=== PATIENT | female | born 1965 | race Two or more races ===

== ENCOUNTER 2019-03-09 11:24 | Emergency (ER) | payer OTHER ==
[2019-03-09 12:05] VITALS: BP 146/82; PULSE 91; TEMP 98; BMI 29.2
[2019-03-09] MEDS ORDERED: IBUPROFEN 400 MG TABLET (FP) PO ONE ×2 (12:42→12:44)
--- NOTE | 2019-03-09 13:04 | PDOC ---
History of Present Illness - General Chief Complaint: Ear Problem Stated Complaint: INJURY Time Seen by Provider: 03/09/19 12:06 History Source: Patient Exam Limitations: Clinical Condition - History of Present Illness Initial Comments: 03/09/19 13:05 Patient with no significant past medical history presented with complaint of left ear pain status post cleaning left ear with a Q-tip and tip of Q-tip got stuck in left ear over 2 hours ago. Denies dizziness, nausea, vomiting. Denies any other symptoms Is this a multiple visit Asthma Patient?: No Timing/Duration: other (2 hours) Past History - Past Medical History Allergies/Adverse Reactions: Allergies Allergy/AdvReac Type Severity Reaction Status Date / Time Penicillins Allergy Verified 03/09/19 12:05 Home Medications: Ambulatory Orders Ibuprofen 800 mg PO Q8H PRN #20 tablet 03/09/19 Neomycin/Polymyxin B/Hydrocort [Darbyzit-Xhcvxarvr-Zt Ear Susp] 2 drop OD Q8H 5 Days #1 bottle 03/09/19 COPD: No HTN: Yes ("i take meds sometimes") - Psycho Social/Smoking Cessation Hx Smoking History: Never smoked Information on smoking cessation initiated: No Review of Systems - Review of Systems Able to Perform ROS?: Yes Is the patient limited [place] proficient: No Constitutional: No: Chills, Fever, Malaise HEENTM: Yes: Symptoms Reported, See HPI, Ear Pain (left ear pain). No: Eye Pain , Blurred Vision, Tearing, Recent change in vision, Double Vision, Cataracts, Ocular Prothesis, Ear Discharge, Nose Pain, Nose Congestion, Tinnitus, Nose Bleeding, Hearing Loss, Throat Pain, Throat Swelling, Mouth Pain, Dental Problems, Difficulty Swallowing, Mouth Swelling, Other Respiratory: No: Symptoms reported, See HPI, Cough, Orthopnea, Shortness of Breath, SOB with Exertion, SOB at Rest, Stridor, Wheezing, Productive cough, Hemoptysis, Other Cardiac (ROS): No: Symptoms Reported, See HPI, Chest Pain, Edema, Irregular Heart Rate, Lightheadedness, Palpitations, Syncope, Chest Tightness, Other ABD/GI: No: Symptoms Reported, Nausea, Vomiting Integumentary: No: Symptoms Reported Neurological: No: Symptoms reported All Other Systems: Reviewed and Negative *Physical Exam - Vital Signs Last Vital Signs Temp Pulse Resp BP Pulse Ox 98 F 91 H 22 H 146/82 99 03/09/19 12:04 03/09/19 12:04 03/09/19 12:04 03/09/19 12:04 03/09/19 12:04 - Physical Exam General Appearance: Yes: Nourished, Appropriately Dressed, Mild Distress HEENT: positive: EAN, Normal Voice, TMs Normal, Pharynx Normal, Other (small cotton embedded in left inner ear canal) Neck: positive: Supple Respiratory/Chest: negative: Normal Breath Sounds, Respiratory Distress, Accessory Muscle Use Cardiovascular: positive: Regular Rhythm, Regular Rate Musculoskeletal: positive: Normal Inspection Extremity: positive: Normal Inspection Integumentary: positive: Normal Color Neurologic: positive: Fully Oriented, Alert, Normal Response ED Treatment Course - Medications Given in the ED: ED Medications Discontinued Medications Generic Name Dose Route Start Last Admin Trade Name Freq PRN Reason Stop Dose Admin Ibuprofen 800 mg 03/09/19 12:42 03/09/19 12:45 Motrin - PO 03/09/19 12:43 800 mg ONCE ONE Administration Medical Decision Making - Medical Decision Making 03/09/19 13:07 Patient with no significant past medical history presented with complaint of left ear pain status post cleaning left ear with a Q-tip and tip of Q-tip got stuck in left ear over 2 hours ago. Denies dizziness, nausea, vomiting. Denies any other symptoms Exam significant for piece of cotton tip embedded in left ear canal which was removed with forceps through otoscope without complication. Motrin 800 g p.o. ordered for pain. Patient stable for discharge to take Motrin as needed for pain with ENT follow-up Discharge - Discharge Information Problems reviewed: Yes Clinical Impression/Diagnosis: Foreign body in left ear, initial encounter, Otalgia of left ear Condition: Stable Disposition: HOME - Admission No - Additional Discharge Information Prescriptions: Ibuprofen 800 mg PO Q8H PRN #20 tablet PRN Reason: pain Neomycin/Polymyxin B/Hydrocort [Iqfrvncx-Zsktekrrb-Ic Ear Susp] 2 drop OD Q8H 5 Days #1 bottle - Follow up/Referral Referrals: Keven Sweeney MD [Staff Physician] - - Patient Discharge Instructions Patient Printed Discharge Instructions: DI for Removal of Foreign Body From Ear Additional Instructions: Take prescribed medication as prescribed. Refrain from cleaning ear with Q- tip. Follow-up referred ENT if symptoms persist for more than 3 days - Post Discharge Activity
== END 2019-03-09 13:06 | disposition home or self-care (01) ==
LOC: JERFT 11:24
DX: H92.02 Otalgia, left ear (principal); T16.2XXA Foreign body in left ear, initial encounter; X58.XXXA Exposure to other specified factors, initial encounter; Y93.89 Activity, other specified; Y92.002 Bathroom of unspecified non-institutional (private) residence as the place of occurrence of the external cause; I10 Essential (primary) hypertension; Z88.0 Allergy status to penicillin
CPT/HCPCS: 99281-25

== ENCOUNTER 2022-02-19 18:40 | Emergency (ER) | payer OTHER ==
[2022-02-19 18:50] VITALS: BP 109/74; PULSE 93; RESP 18; TEMP 97.8; BMI 29.7
[2022-02-19] MEDS ORDERED: ONDANSETRON 4 MG/2 ML VIAL IVPUSH ONE (20:11)
[2022-02-19] MEDS ORDERED: FAMOTIDINE 20 MG/50 ML IVPB 20 MG/50 ML MG IVPB ONE ×2 (20:11→20:29)
[2022-02-19] MEDS ORDERED: ACETAMINOPHEN 1000 MG/100 ML BAG IVPB ONE (20:11)
[2022-02-19] MEDS ORDERED: SODIUM CHLORIDE 0.9% 1000 ML INFUS.BAG IV ONE (20:11)
[2022-02-19] MEDS ORDERED: ACETAMINOPHEN INJECTION 100 ML IVPB ONE (20:28)
[2022-02-19] MEDS ORDERED: ONDANSETRON 4 MG/2 ML VIAL ONE (20:28)
[2022-02-19 21:12] LABS: BASO % 0.1 % (0-2.0); EOS % 0.2 % (0-4.5); HEMATOCRIT 40.9 % (32.4-45.2); HEMOGLOBIN 13.4 GM/dL (10.7-15.3); LYMPH % 4.1 % (8-40); MCH 30.2 pg (25.7-33.7); MCHC 32.7 g/dl (32.0-36.0); MEAN CELL VOLUME 92.3 fl (80-96); MEAN PLT VOLUME 9.6 fl (7.5-11.1); MONO % 4.2 % (3.8-10.2); NEUT % 91.4 % (42.8-82.8); PLATELET COUNT 207 10^3/uL (134-434); RBC 4.44 M/mm3 (3.60-5.2); RDW 13.6 % (11.6-15.6)
[2022-02-19 21:28] LABS: CHLORIDE 107 mmol/L (98-107); SODIUM 140 mmol/L (136-145)
[2022-02-19 21:32] LABS: ALBUMIN 3.6 g/dl (3.4-5.0); ANION GAP 6 MMOL/L (8-16); BLOOD UREA NITROGEN 20.4 mg/dL (7-18); CALCIUM 8.9 mg/dL (8.5-10.1); CO2 27 mmol/L (21-32); GLUCOSE,RANDOM 107 mg/dL (74-106); LIPASE 112 U/L (73-393)
[2022-02-19 21:35] LABS: CREATININE 0.8 mg/dL (0.55-1.3); SGOT/AST 24 U/L (15-37); SGPT/ALT 26 U/L (13-61)
[2022-02-19 21:36] LABS: BILIRUBIN,TOTAL 0.4 mg/dL (0.2-1)
[2022-02-19 21:37] LABS: TOT PROT 7.1 g/dl (6.4-8.2)
[2022-02-19 21:38] LABS: ALK PHOS 78 U/L (45-117)
[2022-02-19 22:48] LABS: ANISOCYTOSIS 0; MACROCYTOSIS 0
== END 2022-02-19 22:31 | disposition home or self-care (01) ==
LOC: JER 18:40
PROC: 3E0333Z Introduction of Anti-inflammatory into Peripheral Vein, Percutaneous Approach (ICD-10-PCS; principal; 2022-02-19)
PROC: 3E033GC Introduction of Other Therapeutic Substance into Peripheral Vein, Percutaneous Approach (ICD-10-PCS; 2022-02-19)
PROC: 3E033GC Introduction of Other Therapeutic Substance into Peripheral Vein, Percutaneous Approach (ICD-10-PCS; 2022-02-19)
DX: R11.10 Vomiting, unspecified (principal); R19.7 Diarrhea, unspecified
CPT/HCPCS: 0241U-QW; 36415; 71046-TC-FY; 80053; 83690; 84484; 85025; 93005; 93010; 99285-25

== ENCOUNTER 2023-01-12 17:34 | Emergency (ER) | payer OTHER ==
[2023-01-12 17:51] VITALS: BP 122/81; PULSE 98; RESP 18; TEMP 97.8; BMI 30.9
== END 2023-01-12 21:03 | disposition home or self-care (01) ==
LOC: JERFT 17:34
DX: R09.81 Nasal congestion (principal); R05.9 Cough, unspecified; R07.89 Other chest pain; J06.9 Acute upper respiratory infection, unspecified; J01.90 Acute sinusitis, unspecified
CPT/HCPCS: 93005; 93010; 99283-25